=== PATIENT | female | born 1930 | race Caucasian/White ===

== ENCOUNTER 2017-09-29 11:32 | Emergency (ER) | payer MEDICARE ==
[2017-09-29 12:39] LABS: Hematocrit 35 % (35-47); Hemoglobin 11.5 g/dl (12.0-16.0); Mean Corpuscular HGB Conc 33 g/dl (31-36); Mean Corpuscular Hemoglobin 28 pg (27-31); Mean Corpuscular Volume 86 fL (80-97); Mean Platelet Volume 10 um3 (7.4-10.4); Platelet Count 326 10^3/ul (150-450); Red Blood Count 4.09 10^6/ul (4.0-5.4); Red Cell Distribution Width 17 % (10.5-15); White Blood Count 22.8 10^3/ul (3.5-10.8)
[2017-09-29] MEDS: NS 0.9% 1000 ML* 2,000 ML IV ONE ×2 (12:48→13:28)
[2017-09-29 12:54] LABS: INR 1.2 (0.77-1.02)
[2017-09-29 12:56] LABS: EGFR Non-African American 63.7 (>60)
[2017-09-29] MEDS ORDERED: clonazePAM TAB(*) 0.5 MG PO ONE (13:14)
[2017-09-29 13:35] LABS: Monocytes % 3 % (0-13)
--- NOTE | 2017-09-29 13:50 | RAD ---
INDICATION: Elevated white blood cell count COMPARISON: June 26, 2016 TECHNIQUE: An AP portable view obtained at 1320 hours is submitted. FINDINGS: Bones/Soft Tissues: There are no acute bony findings. Cardiomediastinal: The cardiomediastinal silhouette is normal. Lungs: There are no infiltrates. Pleura: There are no pleural effusions. Other: None IMPRESSION: NO ACTIVE DISEASE
[2017-09-29] MEDS ORDERED: Iohexol 300* (CONTRAST) 10 ML SDV IV ONE (13:57)
--- NOTE | 2017-09-29 14:59 | RAD ---
CLINICAL HISTORY: Left upper quadrant mass. Subjective complaints of constipation. COMPARISON: None TECHNIQUE: Contrast enhanced CT examination of the abdomen and pelvis from the lung bases through the initial tuberosities. The patient received 90 mL Omnipaque 300 intravenously prior to imaging.The patient received oral contrast as well prior to imaging. FINDINGS: VISUALIZED LUNG BASES: The visualized lung bases are grossly clear. There is no pleural effusion. ABDOMEN AND PELVIS: The pancreas and adrenal glands are grossly normal in appearance. In the left lobe of the liver there is a fluid density cyst measuring 8 mm in axial dimension. Liver is otherwise homogenous in attenuation. The portal vein is enlarged measuring 1.9 cm in diameter. The spleen is massively enlarged measuring a maximum dimension of 23.6 cm in the cephalocaudal projection and 28.6 x 12.6 cm in the axial plane. The spleen is otherwise fairly homogenous in attenuation. The gallbladder is normal. In the left kidney there is a 5 mm hypoattenuating focus that cannot be characterized further. Otherwise the kidneys are normal in appearance without focal mass, calcification or signs of hydronephrosis. The oral contrast has progressed as far as the transverse colon. The small and large bowel are not distended. The patient's normal appendix is identified in the right lower quadrant with contrast in the lumen measuring 4 mm in diameter (coronal image 45) there is gas and stool seen throughout the length of the colon without pathologic dilatation of the colon. There is no gross retroperitoneal or mesenteric lymphadenopathy. Mostly calcified masses in the uterus are most consistent with old fibroids. There is coarse atherosclerotic calcification of the infrarenal abdominal aorta extending into the bilateral iliac arteries. Degenerative changes of the lower thoracic and lumbar spine includes loss of intervertebral disc height and multilevel vacuum disc phenomenon. There is endplate sclerosis at multiple levels as well. IMPRESSION: 1. Massive splenomegaly with the spleen measuring up to 23.6 cm in length likely accounting for the palpable left upper quadrant mass. The main portal vein is enlarged up to 1.9 cm in diameter suggesting portal venous hypertension as a possible cause of splenomegaly. 2. There is no pathologic dilatation of the small or large bowel.
[2017-09-29 15:22] LABS: Urine Appearance Clear; Urine Blood Negative (Negative); Urine Color Straw; Urine Ketones Negative (Negative); Urine Protein Negative (Negative); Urine Specific Gravity 1.003 (1.010-1.030); Urine Urobilinogen Negative (Negative)
[2017-09-29] MEDS ORDERED: Magnesium CITRATE* 300 ML BTL PO ONE (17:37)
[2017-09-29 18:06] VITALS: BP 159/68
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
== END 2017-09-29 18:05 | disposition home or self-care (01) ==
LOC: ED 11:32
DX: K59.00 Constipation, unspecified (principal); I10 Essential (primary) hypertension; R16.1 Splenomegaly, not elsewhere classified; C95.90 Leukemia, unspecified not having achieved remission; Z79.01 Long term (current) use of anticoagulants
CPT/HCPCS: 36415; 71045; 74177; 80053; 81003; 81270; 83605; 83690; 85025; 85610; 85730; 86140; 88271; 96360; 99282; A9270-GY; Q9967